=== PATIENT | male | born 1965 | race Caucasian/White ===

== ENCOUNTER 2022-05-29 09:21 | Day surgery (SDC) | payer BC, SELFPAY ==
[2022-05-24 15:13] LABS: Absolute Lymphocytes (CBC) 1.4 K/uL (0.7-4.9); Hematocrit 45.6 % (39.6-49.0); Lymphocytes % 22.1 % (15.3-44.8); MCV 88.8 fL (80-100); MPV 7.3 fL (7.6-11.3); RBC Red Blood Cell Count 5.14 M/uL (4.33-5.43)
[2022-05-24 15:15] LABS: Protime INR 1.12
[2022-05-24 15:47] LABS: Potassium 3.4 mmol/L (3.5-5.1)
--- NOTE | 2022-05-28 12:18 | EKG ---
Test Date: 2022-05-24 Test Time: 14:52:17 Licensed Architect: RICHARD MEASUREMENT RESULTS: Intervals: Rate: 78 NC: 142 QRSD: 118 QT: 358 QTc: 408 Basile: P: 70 NC: 142 QRS: 63 T: 55 INTERPRETIVE STATEMENTS: Normal sinus rhythm Right bundle branch block Abnormal ECG No previous ECG available for comparison Electronically Signed On 05-28-22 12:14:06 ACID BLOWER by [employer]
[2022-05-29] MEDS ORDERED: CEFAZOLIN SODIUM 2 GM/VIAL ONE (09:48)
[2022-05-29] MEDS ORDERED: Ringers Lactate 1,000 ML IV ONE (09:48)
[2022-05-29] MEDS ORDERED: FENTANYL CITR 100 MCG/2 ML ONE (13:09)
[2022-05-29] MEDS ORDERED: propofoL 200 MG/20 ML VIAL IV ONE (13:16)
[2022-05-29] MEDS ORDERED: MIDAZOLAM HCL 2 MG/2 ML INJ ONE (13:17)
[2022-05-29] MEDS ORDERED: LIDOCAINE 1% MPF 5 ML VIAL ONE (13:17)
[2022-05-29] MEDS ORDERED: NS 0.9% VIAL 10 ML ONE (13:26)
[2022-05-29] MEDS ORDERED: KETOROLAC 30 MG/ML INJ ONE (13:33)
[2022-05-29] MEDS ORDERED: ONDANSETRON 4 MG/2 ML VIAL ONE (14:13)
[2022-05-29] MEDS ORDERED: CODEINE 30MG/APAP 300MG TAB PO PRN (14:32)
[2022-05-29] MEDS ORDERED: PHENAZOPYRIDINE 100MG TAB PO ONE ×2 (14:32→16:02)
[2022-05-29] MEDS: HYDROMORPHONE HCL 1 MG/ML INJ ONE ×2 (14:41→14:50)
[2022-05-29] MEDS ORDERED: NA CHLORIDE 0.9% 500 ML ONE (15:35)
[2022-05-29 16:09] VITALS: BP 131/84; TEMP 97; O2SAT 99
--- NOTE | 2022-05-29 19:54 | OP ---
Surgeon: JOSE C LE Preoperative Diagnosis: Benign prostatic hypertrophy with lower urinary tract obstruction. Postoperative Diagnosis: Benign prostatic hypertrophy with lower urinary tract obstruction. Principal Procedure: 1.Prostatic urethral lift/UroLift. 2.Six implants placed with the UL2 device. 3.One implant placed with the ATC/advanced tissue control device. 4.Seven implants total implanted. Indication For Procedure: Mr. Kaufman presented to the [facility] with obstructive urinary symptom s secondary to BPH. Despite maximal medical management with alpha-gail therapy, he still had pers istent moderate LUTS. After evaluation revealed the presence of an elevated median bar with median l obe extending from the right bladder neck with association with the right lateral lobe, surgical ther apy was discussed and the UroLift was elected. Procedure In Detail: The patient was consented in the preoperative holding area before being transfe rred to the operative suite where general anesthesia was induced. He was given Ancef 2 g IV antimicr obial prophylaxis and pneumo boots were provided for DVT prophylaxis. He was placed in the lithotomy position, padded and secured to the table appropriately and his genitalia were prepped with Hibiclen s before he was draped in standard fashion. The case was begun using a the 20-American UroLift scope t o traverse the urethra. However, before this could be performed, because of significant meatal steno sis, dilation of the meatus and fossa navicularis was performed. Using urethral sounds beginning at 18-American, dense meatal stenosis was dilated all the way to 28-American successfully. I was then able to pass the cystoscope via the urethra into his bladder. As had been previously observed, there was significant lateral lobar hypertrophy with a prostatic urethral length approximately 4-5 cm and an in travesical component of the median lobe extending from the right lateral lobe of the prostate. I bhanu s began by targeting the left lateral lobe anteriorly and using a UroLift delivery device with the UL 2 device and anterolateral position approximately 1.5-2 cm distal to the bladder neck was identified. Approximately 10 degrees of compression was performed in that region and the trigger was pulled, th ereby deploying a needle containing the implant through the prostate. Further retraction of the tiss ue was performed and the second pull was performed allowing 1 end of the implant to be delivered to t he capsular surface of the prostate. Additional tensioning was then performed before the third pull was performed further tensioning the tissue and then the scope was angled back toward the midline unt il the monofilament was noted to be seated within the delivery bay before the fourth pole of the trig luna cut the monofilament affixing the endpiece, which then nicely compressed the lateral lobe in that position. I then turned my attention to second implant, which was placed on the contralateral side of the right lateral lobe anteriorly. This did create a nice anterior channel, which was then observ ed using the visual obturator; however, significant tissue existed within the mid and apical zones of the prostate. As a result, 2 additional implants were elected to be placed at the level of the veru montanum, first on the left and then on the right anteriorly, which did create a nice anterior channe l lateralizing the tissue throughout the length of the prostate. However, there was still significan t intraluminal projection of the median lobe extending from the right lateral lobe at the bladder nec k. So at this point, I utilized the advanced tissue control device to rasp and bring the median lobe back within the prostatic urethra before deploying the needle with a capsular tap through the prosta te and appropriately seating it. While this did compress a significant component of the median bar, there was still an intravesical component to the median lobe that remained obstructed. As a result, I then utilized the UL2 device this time more proximally within the substance of the median lobe, but angled significantly laterally to deliver the medial needle all the way through the median lobe and through the lateral lobe outside the prostate. This did successfully then lateralize the median lobe and create a nice open channel. There was a slight residual amount of anterolateral overhang from t he left side, which was then targeted the final seventh implant using the UL2 device on the left side more anteriorly and stacked approximately to the previously placed bladder neck implant on the left side. Once complete, there was a nice anterior channel that had been created that was patent even wi th the fluid turned off, so I left his bladder full and removed the scope placing an 18-American cathet er successfully into his bladder with 15 cc of sterile water in the balloon. I then irrigated the ca theter to ensure no clots, and the patient was taken out of the lithotomy position. He was then awak ened from general anesthesia before being transferred to a stretcher and then transferred to the [facility] very room in good condition. Complications: None. Discharge Disposition: He will be given a voiding trial in recovery and if successfully able to void , he will be discharged home without the catheter. Should he be unable to void, he will be discharge d with a catheter and instructed on how to remove it at home tomorrow morning at 7 a.m. Subsequent f ollowup should be established in about 1 month's time to assess his current symptoms. WR/MODL Voice ID: [id number] Report ID: [id number]
[2022-05-29] MEDS ORDERED: LIDOCAINE JELLY 2% 5 ML SYRINGE TOP ONE (20:46)
== END 2022-05-29 21:14 | disposition home or self-care (01) ==
LOC: OR 09:21
PROVIDERS: ATTEND Urology
PROC: 0T7D8DZ Dilation of Urethra with Intraluminal Device, Via Natural or Artificial Opening Endoscopic (ICD-10-PCS; principal; 2022-05-29 10:45)
DX: N40.1 Benign prostatic hyperplasia with lower urinary tract symptoms (principal); E78.00 Pure hypercholesterolemia, unspecified; K21.9 Gastro-esophageal reflux disease without esophagitis; Z88.1 Allergy status to other antibiotic agents; Z88.2 Allergy status to sulfonamides
CPT/HCPCS: 36415; 80048; 85025; 85610; 87086; 87088; 93005; A4216; J1170; J2001; J2250; J2405; J2704; J3010; J7040; J7120

== ENCOUNTER 2025-05-08 00:50 | Emergency (ER) | payer BC, OTHER, SELFPAY ==
[2025-05-08] MEDS ORDERED: HYDROMORPHONE HCL 0.5 MG/0.5 ML INJ ONE (02:26)
[2025-05-08] MEDS ORDERED: ONDANSETRON 4 MG/2 ML VIAL ONE (02:26)
[2025-05-08 02:32] LABS: Absolute Lymphocytes (CBC) 0.9 K/uL (0.7-4.9); Hematocrit 44.9 % (39.6-49.0); Hemoglobin 15.4 g/dL (13.6-17.9); MCH 29.8 pg (27.0-35.0); MCHC 34.3 g/dL (32.0-36.0); MCV 86.8 fL (80-100); MPV 7.2 fL (7.6-11.3); Nucleated RBC Absolute Count 0.0 (0-0); Nucleated Red Blood Cells % 0.1 % (0-0); RBC Red Blood Cell Count 5.17 M/uL (4.33-5.43); White Blood Count 9.60 thou/uL (4.3-10.9)
[2025-05-08 02:49] LABS: ALT/SGPT 31.0 U/L (16-61); AST/SGOT 14.0 U/L (15-37); Albumin 3.7 g/dL (3.4-5.0); Albumin/Globulin Ratio 1.1 (1.1-1.8); Alkaline Phosphatase 40.0 U/L (45-117); Anion Gap 7.8 mEq/L (5.0-15.0); BUN Blood Urea Nitrogen 18.0 mg/dL (7-18); Globulin 3.5 g/dL (2.3-3.5); Glucose Level 192.0 mg/dL (74-106); Lipase 38.0 U/L (13-75); Potassium 3.8 mEq/L (3.5-5.1)
--- NOTE | 2025-05-08 03:59 | EDPHYS ---
Physician Documentation [facility] Name: Nicola Kaufman Age: 60 yrs Sex: Male : 1965 Arrival Date: 05/08/2025 Time: 00:50 Bed 19 Private MD: ED Physician Hung Abarca HPI: 05/08 03:28 This 60 yrs old Male presents to ER via Ambulatory with complaints of Right side abd tt7 pain. 03:28 Patient reports right upper quadrant abdominal pain which he characterizes as a sharp tt7 intermittent pain with associated nausea and nonbloody nonbilious vomiting, he rates the pain as 8/10 in severity, no exacerbating or alleviating factors, past medical history includes hypertension and hyperlipidemia. Historical: - Allergies: 01:25 Sulfa (Sulfonamide Antibiotics); ha1 - PMHx: 01:25 Hypertensive disorder; Hypercholesterolemia; ha1 - PSHx: 01:25 SOULDER REPAIR; ha1 - Immunization history:: Adult Immunizations up to date. - Infectious Disease History:: Denies. - Social history:: Smoking status: Patient denies any tobacco usage or history of. ROS: 03:26 Constitutional: negative for fever. tt7 03:26 Cardiovascular: negative for chest pain. Respiratory: negative for shortness of breath. MS/Extremity: negative for injury and deformity. Skin: negative for rash. Neuro: negative for focal weakness. 03:26 Abdomen/GI: Positive for abdominal pain, nausea and vomiting, Exam: 03:26 Constitutional: vital signs reviewed, well appearing. Head/Face: normocephalic, tt7 atraumatic. Eyes: no conjunctival injection, anicteric sclerae. ENT: mucus membranes moist. Neck: trachea midline, no JVD, no meningismus. Chest/axilla: normal chest wall appearance and motion, nontender, no crepitus. Cardiovascular: regular rate and rhythm, no murmurs, no rubs, no lower extremity edema. Respiratory: normal respiratory effort, no accessory muscle use, lungs CTAB. Abdomen/GI: soft, nondistended, moderate right upper quadrant tenderness, no guarding or rebound, negative Burnham's sign, no McBurney point tenderness. Back: normal ROM. Skin: warm, dry, intact, normal turgor, normal color, no rash. MS/ Extremity: normal ROM of extremities, no gross deformities. Neuro: alert and oriented with appropriate mental status, normal speech, follows commands, no focal neurologic deficits. Psych: appropriate mood and affect. Vital Signs: 01:00 BP 148 / 83; Pulse 64; Resp 18 S; Temp 97(O); Pulse Ox 100% on R/A; Weight 80.74 kg; ha1 Height 5 ft. 10 in. ; 02:30 BP 134 / 76; Pulse 73; Resp 18; Pulse Ox 98% on R/A; ss12 03:30 BP 127 / 63; Pulse 71; Resp 18 S; Pulse Ox 99% on R/A; ss12 01:00 Body Mass Index 25.54 (80.74 kg, 177.8 cm) ha1 MDM: 01:14 Medical Screening Exam initiated tt7 03:24 Differential Diagnosis ACS, arrhythmia, GERD, cholelithiasis, cholecystitis, tt7 pancreatitis, gastritis. Data reviewed: vital signs, nurses notes, lab test result(s), EKG, radiologic studies. ED course: I independently interpreted the patient's EKG performed on 05/08/2025 at 0239. On my interpretation, EKG demonstrates normal sinus rhythm, ventricular rate 77 bpm, right bundle branch block, QRS duration 124 ms, normal ST segments, no STEMI. 03:27 ED course: Patient presents with right upper quadrant pain, vital signs are stable, he tt7 does have some right upper quadrant tenderness but no peritoneal signs, standard cardiac workup ordered as well as lipase, I suspect cholelithiasis versus cholecystitis, will likely obtain right upper quadrant ultrasound as well, will treat patient's pain with IV Dilaudid and Zofran. 03:53 ED course: I reassessed the patient, feels significantly improved after ER tt7 interventions, I spoke with the senior laboratory technician and personally reviewed the ultrasound images, on my interpretation there is small amount of biliary sludge, no cholelithiasis, no stephanie cholecystic fluid or other findings of cholecystitis, due to frequent delays in care lately waiting for official radiology report I discussion with the patient regarding my independent interpretation of the images and is reassuring laboratory studies and clinical response to medications, after engaging in shared decision making patient is comfortable with discharge home without official radiology read and I will provide patient with outpatient general surgery referral and as needed prescription for Zofran, strict return precautions discussed. 05/08 01:14 Order name: CBC with Diff; Complete Time: 02:55 tt7 05/08 01:14 Order name: CMP; Complete Time: 02:55 tt7 05/08 01:14 Order name: Lipase; Complete Time: 02:55 tt7 05/08 01:19 Order name: Troponin HS; Complete Time: 03:15 tt7 05/08 01:19 Order name: XRAY Chest (1 view) tt7 05/08 02:56 Order name: US Abdomen Limited tt7 05/08 01:14 Order name: IV Saline Lock; Complete Time: 02:43 tt7 05/08 01:14 Order name: Labs collected and sent; Complete Time: 02:43 tt7 05/08 01:19 Order name: Cardiac monitoring; Complete Time: 02:43 tt7 05/08 01:19 Order name: EKG - Nurse/Tech; Complete Time: 02:43 tt7 05/08 01:19 Order name: O2 Per Protocol; Complete Time: 02:43 tt7 05/08 01:19 Order name: O2 Sat Monitoring; Complete Time: 02:43 tt7 Administered Medications: 02:30 Drug: Ondansetron IVP 4 mg IVP once; over 2 minutes Route: IVP; Site: right antecubital;ss12 03:00 Follow up: Response: No adverse reaction ss12 02:30 Drug: HYDROmorphone IVP 0.5 mg IVP once Route: IVP; Site: right antecubital; ss12 03:00 Follow up: Response: No adverse reaction ss12 Disposition: 04:02 Co-signature as Attending Physician, Hung Abarca DO. tt7 Disposition Summary: 05/08/25 03:59 Discharge Ordered Notes: Location: Home tt7 Problem: new tt7 Symptoms: have improved tt7 Condition: Stable tt7 Diagnosis - BILIARY COLIC tt7 - Upper abdominal pain, unspecified tt7 - Nausea with vomiting, unspecified tt7 Followup: tt7 - With: Emergency Department - When: As needed - Reason: Followup: tt7 - With: Zander Landry MD - When: 2 - 3 days - Reason: Recheck today's complaints Discharge Instructions: - Discharge Summary Sheet tt7 - Biliary Colic, Adult tt7 - Gallbladder Eating Plan tt7 Forms: - Medication Reconciliation Form tt7 - Antibiotic Education tt7 - Prescription Opioid Use tt7 - Patient Portal Instructions tt7 - Leadership Thank You Letter tt7 Prescriptions: - ondansetron HCl 4 mg Oral tablet - take 1 tablet ORAL route every 8 to 12 hours as needed for nausea and vomiting; tt7 20 tablet; Refills: 0, Product Selection Permitted Signatures: Dispatcher [employer] EDMS Jaci Trivedi RN RN ha1 Chloe Corona RN RN ss12 Hung Abarca, DO DO tt7 Corrections: (The following items were deleted from the chart) 01:20 01:20 Chest Single View+RAD.RAD.BRZ ordered. EDMS EDMS
--- NOTE | 2025-05-08 03:59 | ER ---
Nurse's Notes [facility] Name: Nicola Kaufman Age: 60 yrs Sex: Male : 1965 Arrival Date: 05/08/2025 Time: 00:50 Bed 19 Private MD: Diagnosis: BILIARY COLIC;Upper abdominal pain, unspecified;Nausea with vomiting, unspecified Presentation: 05/08 01:00 Chief complaint: Patient states: RIGHT UPPER QUADRANT ABDOMINAL PAIN, NAUSEA AND ha1 VOMITING. 01:00 Coronavirus screen: Client denies travel out of the [place] in the last 14 days. Ebola ha1 Screen: No symptoms or risks identified at this time. Initial Sepsis Screen: Does the patient meet any 2 criteria? No. Patient's initial sepsis screen is negative. Does the patient have a suspected source of infection? No. Patient's initial sepsis screen is negative. Risk Assessment: Do you want to hurt yourself or someone else? Patient reports no desire to harm self or others. Onset of symptoms was May 08, 2025. 01:00 Method Of Arrival: Ambulatory ha1 01:00 Acuity: ISAURO 3 ha1 Triage Assessment: 01:25 General: Appears uncomfortable, Behavior is cooperative. Pain: Complains of pain in ha1 right upper quadrant Pain currently is 8 out of 10 on a pain scale. Quality of pain is described as aching. Neuro: Level of Consciousness is awake, alert, obeys commands, Oriented to person, place, time, situation. Cardiovascular: Patient's skin is warm and dry. Respiratory: Airway is patent Respiratory effort is even, unlabored, Respiratory pattern is regular, symmetrical. GI: Abdomen is round non-distended, Reports upper abdominal pain, nausea. Historical: - Allergies: 01:25 Sulfa (Sulfonamide Antibiotics); ha1 - PMHx: 01:25 Hypertensive disorder; Hypercholesterolemia; ha1 - PSHx: 01:25 SOULDER REPAIR; ha1 - Immunization history:: Adult Immunizations up to date. - Infectious Disease History:: Denies. - Social history:: Smoking status: Patient denies any tobacco usage or history of. Screenin:10 [facility] ED Fall Risk Assessment (Adult) History of falling in the last 3 months, ss12 including since admission No falls in past 3 months (0 pts) Confusion or Disorientation No (0 pts) Intoxicated or Sedated No (0 pts) Impaired Gait No (0 pts) Mobility Assist Device Used No (0 pt) Altered Elimination No (0 pt) Score/Fall Risk Level 0 - 2 = Low Risk Oriented to surroundings, Maintained a safe environment, Educated pt \T\ family on fall prevention, incl call for assistance when getting out of bed, Assessed \T\ reinforced patient's understanding of fall precautions, Provided non-skid footwear. Abuse screen: Denies threats or abuse. Denies injuries from another. Nutritional screening: No deficits noted. Tuberculosis screening: No symptoms or risk factors identified. Assessment: 01:09 General: Appears in no apparent distress. comfortable, Behavior is calm, cooperative, ss12 quiet. Pain: Complains of pain in abdomen, right upper quadrant Pain does not radiate. Pain currently is 8 out of 10 on a pain scale. Quality of pain is described as aching. 04:01 Neuro: No deficits noted. Level of Consciousness is awake, alert, obeys commands, ss12 Oriented to person, place, time, situation. Cardiovascular: No deficits noted. Patient's skin is warm and dry. Respiratory: No deficits noted. Airway is patent Respiratory effort is even, unlabored, Respiratory pattern is regular, symmetrical. GI: Abdomen is flat, non-distended, Reports upper abdominal pain, normal bowel habits. : No deficits noted. Urine is clear. EENT: No deficits noted. No signs and/or symptoms were reported regarding the EENT system. Derm: No deficits noted. No signs and/or symptoms reported regarding the dermatologic system. Derm: Skin is intact, Skin is dry, Skin is pink, warm \T\ dry. normal. Musculoskeletal: No deficits noted. No signs and/or symptoms reported regarding the musculoskeletal system. Vital Signs: 01:00 BP 148 / 83; Pulse 64; Resp 18 S; Temp 97(O); Pulse Ox 100% on R/A; Weight 80.74 kg; ha1 Height 5 ft. 10 in. ; 02:30 BP 134 / 76; Pulse 73; Resp 18; Pulse Ox 98% on R/A; ss12 03:30 BP 127 / 63; Pulse 71; Resp 18 S; Pulse Ox 99% on R/A; ss12 01:00 Body Mass Index 25.54 (80.74 kg, 177.8 cm) ha1 ED Course: 00:57 Patient arrived in ED. gm2 01:14 Hung Abarca DO is Attending Physician. tt7 01:25 Triage completed. ha1 02:21 Chloe Corona RN is Primary Nurse. ss12 02:29 Inserted saline lock: 20 gauge in right antecubital area, using aseptic technique. ha1 Blood collected. Flushed with 10 mL NS. 02:39 XRAY Chest (1 view) In Process Unspecified. EDMS 02:43 CMP Sent. ss12 02:43 Lipase Sent. ss12 03:47 US Abdomen Limited In Process Unspecified. EDMS 03:57 Zander Landry MD is Referral Physician. tt7 04:03 No provider procedures requiring assistance completed. ss12 04:03 Arm band placed on right wrist. ss12 04:03 Patient has correct armband on for positive identification. ss12 04:03 Provided Education on: plan of care. ss12 Administered Medications: 02:30 Drug: Ondansetron IVP 4 mg IVP once; over 2 minutes Route: IVP; Site: right antecubital;ss12 03:00 Follow up: Response: No adverse reaction ss12 02:30 Drug: HYDROmorphone IVP 0.5 mg IVP once Route: IVP; Site: right antecubital; ss12 03:00 Follow up: Response: No adverse reaction ss12 Medication: 04:03 VIS not applicable for this client. ss12 Outcome: 03:59 Discharge ordered by . tt7 04:33 Patient left the ED. ss12 Signatures: Dispatcher [employer] EDMA Jaci Trivedi RN RN 1 Cora Jasso gm2 Chloe Corona RN RN ss12 Hung Abarca DO DO tt7 Corrections: (The following items were deleted from the chart) 04:07 04:05 BP 127 / 63; Pulse 71bpm; Resp 18bpm; Spontaneous; Pulse Ox 99% RA; ss12 ss12
--- NOTE | 2025-05-08 06:06 | RAD REPORT ---
EXAM DESCRIPTION: Abdomen Exam Limited RadLex: US ABDOMEN LIMITED CLINICAL HISTORY: 60 years Male, ABD PAIN COMPARISON: None. FINDINGS: Grayscale and color Doppler images were obtained to assess the gallbladder. No discrete shadowing gal lstones identified. Possible small amount of sludge versus artifact. Gallbladder wall measures up to 0.2 cm in thickness. No pericholecystic fluid collection. There may be mild background steatosis w ith focal sparing adjacent to the gallbladder. Common duct is not dilated, measuring 0.3 cm. IMPRESSION: Possible small amount of gallbladder sludge versus artifact. No discrete shadowing gallstones identif ied. No sonographic evidence of acute cholecystitis. Electronically signed by: Uma Malcolm MD 05/08/2025 06:03 AM CDT RP Due to temporary technical issues with the PACS/CiviQ reporting system, reports are being gagan d by the in-house radiologist without review as a courtesy to ensure prompt reporting the interpreting radiologist is fully responsible for the content of the report. Transcribed Date/Time: 05/08/2025 6:06 AM
--- NOTE | 2025-05-08 06:14 | RAD REPORT ---
EXAM DESCRIPTION: Chest Single View CLINICAL HISTORY: CHEST PAIN COMPARISON: None TECHNIQUE: Single AP view of the chest. FINDINGS: Lung volumes adequate. Cardiac silhouette is normal in size. No pneumothorax. No large pleural effusion. No focal consolidation. No acute bony finding. IMPRESSION: No evidence of acute cardiopulmonary disease. Electronically signed by: Eyad Leger MD 05/08/2025 05:11 AM CDT RP TYG Due to temporary technical issues with the PACS/[employer] reporting system, reports are being gagan d by the in-house radiologist without review as a courtesy to ensure prompt reporting the interpreting radiologist is fully responsible for the content of the report. Transcribed Date/Time: 05/08/2025 6:14 AM
[2025-05-08 11:33] VITALS: TEMP 97
[2025-05-08 11:49] VITALS: BP 127/63; O2SAT 99
== END 2025-05-08 04:33 | disposition home or self-care (01) ==
LOC: ER 00:50
DX: K80.50 Calculus of bile duct without cholangitis or cholecystitis without obstruction (principal); R11.2 Nausea with vomiting, unspecified
CPT/HCPCS: 93005; 85025; 36415; 84484; 83690; 80053; 71045; 76705; 96375; 96374; 99284; J1171; J2405